=== PATIENT | male | born 1955 | race African-American/Black ===

== ENCOUNTER 2017-05-19 23:54 | Emergency (ER) | payer OTHER ==
[~2017-05-19] VITALS: Ht 172.7 cm; Wt 88.0 kg
[~2017-05-19 23:54] MED LIST: ALBU2.5V13 INH; MOME13HF INH
[2017-05-19] MEDS ORDERED: ALBUTEROL (0.083%) 2.5MG/3ML NEB HHN STA (23:55)
[2017-05-19] MEDS ORDERED: METHYLPREDNISOLONE SOD SUCC 125 MG/2 ML VIAL IV STA (23:55)
[2017-05-19] MEDS ORDERED: MAGNESIUM 2 G PREMIX 50 ML IV STA (23:55)
[2017-05-19] MEDS ORDERED: IPRATROPIUM BROMIDE (0.02%) 0.5MG/2.5ML NEB HHN STA (23:55)
[2017-05-20] MEDS ORDERED: ALBUTEROL (0.083%) 2.5MG/3ML NEB HHN STA (00:09)
[2017-05-20 03:11] VITALS: BP 134/74
== END 2017-05-20 03:14 | disposition left against medical advice (07) ==
LOC: ER 23:54 → CANRESERV 05-20 02:57 → ENRESERV 05-20 02:57 → ER 05-20 03:14 → CANBEDREQ 05-20 05:27
DX: J45.901 Unspecified asthma with (acute) exacerbation (principal); R09.02 Hypoxemia
CPT/HCPCS: 71045; 94644; 94660; 96365; 96375; 99291; J2930; J3475; J7611; Z7610

== ENCOUNTER 2019-02-23 10:18 | Emergency (ER) | payer OTHER ==
[~2019-02-23] VITALS: Ht 172.7 cm; Wt 75.0 kg
[2019-02-23 12:19] VITALS: BP 113/79
[2019-02-23] MEDS ORDERED: SODIUM CHLORIDE 0.9% 1,000 ML IV ONE (12:24)
[2019-02-23] MEDS ORDERED: ONDANSETRON HCL 4MG/2ML INJ IV STA (12:24)
[2019-02-23 12:55] LABS: HEMATOCRIT. 51.3 % (42.0-52.0); MEAN CORPUSCULAR HEMOGLOBIN 29.4 pg (28.0-32.0); MEAN CORPUSCULAR VOLUME 88.8 fL (80.0-94.0); MEAN PLATELET VOLUME 8.9 fl (7.4-10.4); PLATELET 251 x1000/uL (130-400); RED BLOOD CELL COUNT 5.78 mill/uL (4.7-6.1); RED CELL DISTRIBUTION WIDTH 14.4 % (11.6-14.6)
[2019-02-23 13:01] LABS: CHLORIDE 103 mEq/L (98-107)
[2019-02-23 13:12] LABS: INR 1.1; PROTHROMBIN TIME 11.5 sec (9.6-11.0)
[2019-02-23 13:42] LABS: PLATELET ESTIMATE NORMAL
== END 2019-02-23 14:29 | disposition home or self-care (01) ==
LOC: ER 10:21
DX: R11.2 Nausea with vomiting, unspecified (principal); R19.7 Diarrhea, unspecified; R10.9 Unspecified abdominal pain; J45.909 Unspecified asthma, uncomplicated
CPT/HCPCS: 36415; 80053; 83690; 85025; 85610; 96374; 99283; J2405; J7030